=== PATIENT | female | born 1945 | race Caucasian/White ===

== ENCOUNTER 2019-02-10 23:03 | Emergency (ER) | payer OTHER ==
[~2019-02-10] VITALS: Ht 157.5 cm; Wt 59.4 kg
[2019-02-10 23:17] VITALS: BP 177/101
--- NOTE | 2019-02-10 23:24 | NUR ---
PT TO LOBBY VSS.
--- NOTE | 2019-02-11 01:50 | NUR ---
PT AMBULATED TO BED 10 WITH DAUGHTER.
--- NOTE | 2019-02-11 02:58 | NUR ---
73 Y/O FEMALE PRESENTS TO ED, C/O L RIB ACHING PAIN 11/22. PT STATES HITTING RIB ON GRANDCHILD'S CRIB YESTERDAY MORNING. PT TOOL TYLENOL BUT WAS INEFFECTIVE. NO BRUISING NOTED, NO DEFORMITY. PT C/O PAIN DURING INHALATION, NO SOB. PT VSS. ERMD AWARE. WILL CONTINUE TO MONITOR.
[2019-02-11 03:35] VITALS: BP 177/101
--- NOTE | 2019-02-11 03:35 | NUR ---
PT DISCHARGED WITH PAPERWORK. RX. SANDY LUND. EDUCATED PT REGARDING MEDICATIONS AND S/E. EDUCATED PT REGARDING D/C DIAGNOSIS. PT VERBALIZED UNDERSTANDING OF TEACHING. TOLD PT TO FOLLOW UP WITH PCP AND WHEN TO RETURN TO ED. PT VSS. ALL QUESTIONS ANSWERED.
== END 2019-02-11 03:35 | disposition home or self-care (01) ==
LOC: MED 23:03
DX: S20.20XA Contusion of thorax, unspecified, initial encounter (principal); E11.9 Type 2 diabetes mellitus without complications; I10 Essential (primary) hypertension; Z88.8 Allergy status to other drugs, medicaments and biological substances; X58.XXXA Exposure to other specified factors, initial encounter; Y93.89 Activity, other specified; Y92.89 Other specified places as the place of occurrence of the external cause; Y99.8 Other external cause status
CPT/HCPCS: 71101; 99283